=== PATIENT | male | born 1955 | race African-American/Black ===

== ENCOUNTER 2022-11-08 11:01 | Emergency (ER) | payer MEDICARE ==
[~2022-11-08] VITALS: Ht 177.8 cm; Wt 136.4 kg
[2022-11-08 11:05] VITALS: TEMP 98
[2022-11-08] MEDS ORDERED: OXYC-38 PO (12:29)
[2022-11-08 12:43] VITALS: BP 122/64; PULSE 80; RESP 18
== END 2022-11-08 12:48 | disposition home or self-care (01) ==
LOC: EMS 11:01
DX: M54.9 Dorsalgia, unspecified (principal); E11.9 Type 2 diabetes mellitus without complications; Z76.0 Encounter for issue of repeat prescription
CPT/HCPCS: 82962; 99282